=== PATIENT | female | born 1995 | race Caucasian/White ===

== ENCOUNTER 2021-11-26 17:46 | Emergency (ER) | payer OTHER, SELFPAY ==
[2021-11-26 17:55] VITALS: BP 112/75; PULSE 96; RESP 16; TEMP 36.8; O2SAT 100
--- NOTE | 2021-11-26 17:58 | ED.URI ---
HPI - URI/Sore Throat General Chief Complaint: Upper Respiratory Infection Stated Complaint: SNEEZING/RUNNY NOSE/LOSS OF VOICE/CHEST CONGESTION Time Seen by Provider: 11/26/21 17:58 Source: patient, RN notes reviewed and old records reviewed Mode of arrival: ambulatory Limitations: no limitations History of Present Illness HPI Narrative: 26 year old female who presents to [facility] care with complaints of sinus congestion drainage, loss of voice and some chest congestion since yesterday morning. Patient states that her ears feel clogged, and she lost her voice this morning, she is coughing up some yellowish mucous at times. Patient states that she has not had any fevers, chills, or sweats, denies any body aches. Patient reports that she has had COVID vaccination but did not have flu shot this year. She states one of her coworkers has had upper respiratory infection. Related Data Home Medications Medication Instructions Recorded Confirmed bupropion HCl mg PO 11/26/21 Allergies Allergy/AdvReac Type Severity Reaction Status Date / Time No Known Allergies Allergy Unknown Unknown Uncoded 11/26/21 17:51 Review of Systems Review of Systems: CONSTITUTIONAL: Denies fever, chills, or sweats. EYES: Denies visual changes, redness, or discharge. ENT: Positive for rhinorrhea, congestion, sore throat, or otalgia. CARDIOVASCULAR: Denies chest pain, palpitations, or edema. RESPIRATORY: Positive for cough denies any dyspnea,reports raspy throat, discomfort, and loss of voice GASTROINTESTINAL: Denies abdominal pain, nausea, vomiting, or diarrhea. GENITOURINARY: Denies dysuria or hematuria. SKIN: Denies rash or itching. MUSCULOSKELETAL: Denies back pain, joint pain, or myalgia. NEUROLOGIC: Denies headache, numbness, or weakness. PSYCHIATRIC: Positive for history of anxiety or depression. [facility] Past Medical History Medical History (Updated 11/26/21 @ 18:36 by Patt Adams NP) Anxiety and depression Metabolic syndrome Surgical History Surgical History Hx of tonsillectomy S/P wisdom tooth extraction Family History Family History Mother Family history of thyroid disease Family history of psoriasis Father Hypertension Social History Social History (Updated 11/26/21 @ 18:21 by Patt Adams NP) Smoking status: Never smoker Alcohol intake: current Alcohol use details: social Substance use: never Living arrangements: with family Gender identity (if verbalized by the patient): Female Comments At time of signature, agree with nursing past medical, surgical, social and family history. There is no relevant family history pertinent to the presenting complaint Exam Narrative: GENERAL: Well-appearing, well-nourished, and in no acute distress. HEAD: Normocephalic, atraumatic. EYES: PERRLA and EOMI. ENT: Nares red and swollen with clear rhinorrhea no epistaxis. Mucous membranes moist.TM's normal with good light reflex, throat red with no lesions or exudates no tonsils present, post nasal drainage noted, voice raspy NECK: Supple. no lymphadenopathy CHEST: Clear to auscultation. No respiratory distress.SAO2 100% on room air, productive cough noted at times. HEART: Regular rate and rhythm. No murmur heard. Normal peripheral pulses. ABDOMEN: Soft, nontender, nondistended, normal active bowel sounds. EXTREMITIES: Normal range of motion. No edema. SKIN: Warm, dry, no rash. NEURO: No focal deficits. Alert and oriented x3. Course Course Level of Care: Express Care Visit MDM - URI/Sore Throat Differential Diagnosis Differential diagnosis: Likely upper respiratory infection, sinusitis, viral infection, pharyngitis and other (laryngitis, acute cough) Medical Records Attestation: I reviewed the patient's medical records. Lab Data Attestation: I reviewed the patient's lab results. Lab results narrative: stre
== END 2021-11-26 18:30 | disposition home or self-care (01) ==
PROVIDERS: Emergency Provider Registered Nurse; PCP Registered Nurse
DX: R05.9 Cough, unspecified (principal); J06.9 Acute upper respiratory infection, unspecified; J02.9 Acute pharyngitis, unspecified; F41.9 Anxiety disorder, unspecified; F32.A Depression, unspecified; E88.81 Metabolic syndrome and other insulin resistance
CPT/HCPCS: 87081; 87880; 99213; G0463